=== PATIENT | female | born 1940 | race Caucasian/White ===

== ENCOUNTER 2016-07-12 16:22 | Inpatient (IN) | payer MEDICARE ==
[~2016-07-12] VITALS: Ht 165.1 cm; Wt 88.0 kg
[~2016-07-12 16:22] MED LIST: ACET325T9 PO; ALPR0.25 PO; ALPR0.254 PO; ALPR0.5T6 PO; ARIP15TA2 PO; ASPI325T4 PO; ASPI81TA2 PO; ATOR20TA PO; CALC-326 PO; CALC500T10 PO; CETI10TA22 PO; CINN500C PO; CLON1PAT9 TD; ESCI10TA PO; FURO40TA4 PO; HYDR-2666 PO; HYDR-971 PO; INSU100I27 SQ; INSU100V8 SQ; INSU500V SQ; ISOS30TA4 PO; LACT1CAP8 PO; LISI-334 PO; LOPE2CAP88 PO; LORA10TA33 PO; MAGN400T3 PO; METO1TAB6 PO; METR250T PO; MULT-246 PO; MULT1TAB52 PO; NYST60PO TP; OMEG100T PO; OMEG1CAP6 PO; POTA20LI PO; POTA20TA4 PO; RANI150T6 PO; SIME80TA14 PO; TRAZ50TA15 PO; VIT1TABL57 PO; VITA1CAP PO
[2016-07-12 17:12] LABS: BASO # 0.1 x10^3/uL (0.0-0.2); BASO % 1 % (0-3); EOS % 0 % (0-3); HEMATOCRIT 42.4 % (36.0-47.0); HEMOGLOBIN 14.3 g/dL (12.0-15.5); LYMPH # 0.4 x10^3/uL (1.0-4.8); LYMPH % 2 % (24-48); MEAN CORPUSCULAR HEMOGLOBIN 32 pg (25-35); MEAN CORPUSCULAR HGB CONC 34 g/dL (31-37); MEAN CORPUSCULAR VOLUME 96 fL (79-100); MONO % 5 % (0-9); NEUT % 93 % (31-73); PLATELET COUNT 179 x10^3/uL (140-400); RED BLOOD COUNT 4.42 x10^6/uL (3.50-5.40); RED CELL DISTRIBUTION WIDTH 14.4 % (11.5-14.5)
[2016-07-12 17:14] LABS: BILIRUBIN,URINE SMALL (NEG); GLUCOSE,URINE 500 mg/dL (NEG); NITRITE,URINE NEGATIVE (NEG); PH,URINE 5.5; UROBILINOGEN,URINE 0.2 mg/dL (0.2 mg/dL)
[2016-07-12 17:19] LABS: CALCIUM 8.8 mg/dL (8.5-10.1); CREATININE 1.5 mg/dL (0.6-1.0); GFR 33.8
[2016-07-12 17:25] LABS: ALBUMIN 3.2 g/dL (3.4-5.0); MAGNESIUM 1.7 mg/dL (1.8-2.4); TOTAL PROTEIN 6.3 g/dL (6.4-8.2)
[2016-07-12 17:31] LABS: BACTERIA,URINE FEW /HPF (0-FEW); PROTEIN,URINE NEGATIVE (NEG-TRACE); SQUAMOUS EPITHELIAL CELL,UR MOD /LPF; WBC,URINE OCC /HPF (0-4)
[2016-07-12] MEDS ORDERED: ACETAMINOPHEN 325 MG TABLET. PO PRN (18:00)
[2016-07-12] MEDS ORDERED: ONDANSETRON PF 4 MG/2 ML VIAL. IV PRN ×2 (18:00→18:36)
--- NOTE | 2016-07-12 18:11 | RAD ---
PROCEDURE CT scan of the head without contrast 07/12/2016 HISTORY Fall with altered mental status. TECHNIQUE Unenhanced contiguous, 5 millimeter axial sections were obtained through the head. One or more of the following individualized dose reduction techniques were utilized for this study: 1. Automated exposure control. 2. Adjustment of the mA and/or kV according to patient size. 3. Use of iterative reconstruction technique. FINDINGS Comparison study is dated 02/10/2016. There is generalized parenchymal atrophy. Areas of decreased attenuation are seen within the periventricular and subcortical white matter of both cerebral hemispheres consistent with areas of small vessel ischemic disease. No acute parenchymal abnormality is seen. No extra-axial fluid collection is noted. No skull fracture is seen. IMPRESSION No acute intracranial abnormality is seen. Electronically signed by: Raul Lynch MD (Jul 12, 2016 18:09:28)
--- NOTE | 2016-07-12 18:17 | PHYS DOC ---
Past Medical History Past Medical History: Anxiety, CAD, Depression, Diabetes-Type II, GERD, Glaucoma, High Cholesterol, Hypertension, PA, Renal Disease, Stroke, UTI, Other Additional Past Medical Histor: hemachromatosis, TVT, sleep apnea, mono Past Surgical History: Cholecystectomy, Other Additional Past Surgical Histo: cataract surgery, LASER EYE SURG, BILAT TOE/ FOOT SURG Alcohol Use: None Drug Use: None Adult General Chief Complaint Chief Complaint: MECHANICAL FALL HPI HPI Patient is a 76 year old female who presents with altered mental status. Patient was sent to the emergency department by custodial staff after patient was found to have suffered a fall in her room. The patient has history of dementia and is unable to provide any history. The patient was recently admitted to the hospital for treatment of urinary tract infection. Staff at the custodial are concerned that she may have another urinary tract infection at this time. Patient has not had any fevers. No reports of respiratory distress. The patient at this time denies any complaints. Review of Systems Review of Systems Caveat: Patient demented, denies any complaints Constitutional: Denies fever or chills [] Eyes: Denies change in visual acuity, redness, or eye pain [] HENT: Denies nasal congestion or sore throat [] Respiratory: Denies cough or shortness of breath [] Cardiovascular: No additional information not addressed in HPI [] GI: Denies abdominal pain, nausea, vomiting, bloody stools or diarrhea [] : Denies dysuria or hematuria [] Musculoskeletal: Denies back pain or joint pain [] Integument: Denies rash or skin lesions [] Neurologic: Denies headache, focal weakness or sensory changes [] Endocrine: Denies polyuria or polydipsia [] Current Medications Current Medications Current Medications Medications (Trade) Dose Ordered Sig/Kareem Start Time Stop Time Status Last Admin Dose Admin Acetaminophen (Tylenol) 650 mg PRN Q4HRS PRN 07/12/16 18:00 07/13/16 17:59 UNV Ondansetron HCl 4 mg 4 mg PRN Q8HRS PRN 07/12/16 18:00 07/13/16 17:59 UNV Sodium Chloride (Iv Sodium Chloride 0.9% 1000ml Bag) 1,000 ml @ 125 mls/hr Q8H 07/12/16 17:58 07/13/16 17:57 UNV Allergies Allergies Allergies Coded Allergies Type Severity Reaction Last Updated Verified Phenothiazines Allergy Severe DYSTONIC REACTION 06/19/15 Yes chlorpromazine Allergy Severe DYSTONIC REACTION 06/19/15 Yes droperidol Allergy Severe DYSTONIC REACTION 06/19/15 Yes haloperidol Allergy Severe DYSTONIC REACTION 06/19/15 Yes sertraline HCl Allergy Severe depression 06/19/15 Yes thioridazine Allergy Severe DYSTONIC REACTION 06/19/15 Yes trimethobenzamide Allergy Severe DYSTONIC REACTION 06/19/15 Yes escitalopram Allergy Intermediate 06/19/15 Yes metoclopramide HCl Allergy Intermediate "out of it" 06/19/15 Yes prochlorperazine edisylate Allergy Intermediate "pull skin off" 06/19/15 Yes prochlorperazine maleate Allergy Intermediate "pull skin off" 06/19/15 Yes promethazine Allergy Intermediate 06/19/15 Yes Physical Exam Physical Exam Constitutional: Lethargic, responsive voice, follows commands, afebrile. [] HENT: Normocephalic, atraumatic, bilateral external ears normal, oropharynx moist, no oral exudates, nose normal. [] Eyes: PERRLA, EOMI, conjunctiva normal, no discharge. [] Neck: Normal range of motion, no tenderness, supple, no stridor. [] Cardiovascular:Heart rate regular rhythm, no murmur [] Lungs & Thorax: Bilateral breath sounds clear to auscultation [] Abdomen: Bowel sounds normal, soft, no tenderness, no masses, no pulsatile masses. [] Skin: Warm, dry, no erythema, no rash. [] Back: No tenderness, no CVA tenderness. [] Extremities: No tenderness, no cyanosis, no clubbing, ROM intact, no edema. [] Neurologic: Alert, oriented to self only, symmetric 4 out of 5 strength in bilateral upper and lower extremities, normal sensation. [] Current Patient Data Vital Signs Vital Signs Date Time Temp Pulse Resp B/P Pulse Ox O2 Delivery O2 Flow Rate FiO2 07/12/16 17:00 92 14 134/89 95 Room Air 07/12/16 16:25 98.4 98.4 Lab Values Laboratory Tests Test 07/12/16 16:37 White Blood Count 21.0x10^3/uL (4.0-11.0) H Red Blood Count 4.42x10^6/uL (3.50-5.40) Hemoglobin 14.3g/dL (12.0-15.5) Hematocrit 42.4% (36.0-47.0) Mean Corpuscular Volume 96fL (79-100) Mean Corpuscular Hemoglobin 32pg (25-35) Mean Corpuscular Hemoglobin Concent 34g/dL (31-37) Red Cell Distribution Width 14.4% (11.5-14.5) Platelet Count 179x10^3/uL (140-400) Neutrophils (%) (Auto) 93% (31-73) H Lymphocytes (%) (Auto) 2% (24-48) L Monocytes (%) (Auto) 5% (0-9) Eosinophils (%) (Auto) 0% (0-3) Basophils (%) (Auto) 1% (0-3) Neutrophils # (Auto) 19.5x10^3uL (1.8-7.7) H Lymphocytes # (Auto) 0.4x10^3/uL (1.0-4.8) L Monocytes # (Auto) 1.0x10^3/uL (0.0-1.1) Eosinophils # (Auto) 0.0x10^3/uL (0.0-0.7) Basophils # (Auto) 0.1x10^3/uL (0.0-0.2) Platelet Estimate Pending Urine Collection Type Unknown Urine Color Malissa Urine Clarity Cloudy Urine pH 5.5 Urine Specific [place] >=1.030 Urine Protein Negativemg/dL (NEG-TRACE) Urine Glucose (UA) 500mg/dL (NEG) Urine Ketones (Stick) Negativemg/dL (NEG) Urine Blood Negative (NEG) Urine Nitrite Negative (NEG) Urine Bilirubin Small (NEG) Urine Urobilinogen Dipstick 0.2mg/dL (0.2 mg/dL) Urine Leukocyte Esterase Negative (NEG) Urine RBC 1-2/HPF (0-2) Urine WBC Occ/HPF (0-4) Urine Squamous Epithelial Cells Mod/LPF Urine Bacteria Few/HPF (0-FEW) Urine Hyaline Casts Moderate/HPF Urine Mucus Mod/LPF Sodium Level 137mmol/L (136-145) Potassium Level 4.0mmol/L (3.5-5.1) Chloride Level 100mmol/L (98-107) Carbon Dioxide Level 26mmol/L (21-32) Anion Gap 11 (6-14) Blood Urea Nitrogen 26mg/dL (7-20) H Creatinine 1.5mg/dL (0.6-1.0) H Estimated GFR (Cockcroft-Gault) 33.8 BUN/Creatinine Ratio 17 (6-20) Glucose Level 280mg/dL (70-99) H Calcium Level 8.8mg/dL (8.5-10.1) Magnesium Level 1.7mg/dL (1.8-2.4) L Total Bilirubin 1.0mg/dL (0.2-1.0) Aspartate Amino Transferase (AST) 16U/L (15-37) Alanine Aminotransferase (ALT) 30U/L (14-59) Alkaline Phosphatase 73U/L (46-116) Total Protein 6.3g/dL (6.4-8.2) L Albumin 3.2g/dL (3.4-5.0) L Albumin/Globulin Ratio 1.0 (1.0-1.7) Laboratory Tests 07/12/16 16:37 Laboratory Tests 07/12/16 16:37 EKG EKG Interpreted by me: Heart rate 87, sinus rhythm, leftward axis, normal intervals , no acute ST/T-wave abnormalities present [] Radiology/Procedures Radiology/Procedures One view AP chest x-ray interpreted by me: No infiltrate, no effusion, normal cardiac silhouette [facility] [address] [place], [place] [id number] IMAGING REPORT Signed PATIENT: JAXON OLMSTEAD ACCOUNT: [id number] : 1940 LOCATION: ER AGE: 76 SEX: F EXAM STATUS: REG ER ORD. PHYSICIAN: MARIANNE ALBERT MD REASON: altered mental status, fall PROCEDURE: HEAD WO CONTRAST PROCEDURE CT scan of the head without contrast 07/12/2016 HISTORY Fall with altered mental status. TECHNIQUE Unenhanced contiguous, 5 millimeter axial sections were obtained through the head. One or more of the following individualized dose reduction techniques were utilized for this study: 1. Automated exposure control. 2. Adjustment of the mA and/or kV according to patient size. 3. Use of iterative reconstruction technique. FINDINGS Comparison study is dated 02/10/2016. There is generalized parenchymal atrophy. Areas of decreased attenuation are seen within the periventricular and subcortical white matter of both cerebral hemispheres consistent with areas of small vessel ischemic disease. No acute parenchymal abnormality is seen. No extra-axial fluid collection is noted. No skull fracture is seen. IMPRESSION No acute intracranial abnormality is seen. Electronically signed by: Raul Lynch MD (Jul 12, 2016 18:09:28) DICTATED and SIGNED BY: RAUL LYNCH MD DATE: 07/12/16 1806 CC: MARIANNE ALBERT MD; TOYIN MARIE MD ~ [] Course & Med Decision Making Course & Med Decision Making Pertinent Labs and Imaging studies reviewed. (See chart for details) Patient's neuro imaging was negative for acute findings and patient's UA does not show signs of active infection. The patient's symptoms appear to be due to dehydration as the patient has no elevated BUN/creatinine and concentrated urine. Due to continued fall risk, the patient will need to be admitted to the hospital for IV hydration. I spoke with Dr. Parekh who accepted care patient in hospital. Dragon Disclaimer Dragon Disclaimer This electronic medical record was generated, in whole or in part, using a voice recognition dictation system. Departure Departure Impression: Primary Impression: Dehydration Additional Impressions: Encephalopathy acute Leukocytosis Type 2 diabetes mellitus Disposition: ADMITTED INPATIENT Admitting Physician: Elena Parekh Condition: STABLE Referrals: TOYIN MARIE MD (PCP) Problem Qualifiers Additional Impressions: Leukocytosis Leukocytosis type: unspecified Qualified Code: D72.829 - Elevated white blood cell count, unspecified Type 2 diabetes mellitus Diabetes mellitus complication status: with hyperglycemia Diabetes mellitus nursing home insulin use: unspecified nursing home insulin use status Qualified Code : E11.65 - Type 2 diabetes mellitus with hyperglycemia MARIANNE ALBERT MD Jul 12, 2016 18:17
--- NOTE | 2016-07-12 18:36 | PDOC1 ---
History and Physical Date of Admission Date of Admission DATE: 07/12/16 TIME: 18:29 Identification/Chief Complaint Chief Complaint fall in SNU, lethargy? Source Source: Chart review, Patient History of Present Illness History of Present Illness 76 y/o female, demented, SNU resident, poor historian no family at bedside, BUt familiar to me as i admitted her may 2016 for the ff: 1. AMS, unresponsiveness, metabolic encephalopathy from drug overdose 2. suicide with drug overdose, extubated 02/11 3. acute resp failure with 2 3. hypoglycemia with 2 4. dm2 5. HTN 6. glaucoma 7. recent right ankle fx, no sx 8. possible asp PNA 9. hypomagnesemia 10. dysphagia post intubation 11. old or subacute CVA on MRI But she also was just here Jun 2016 for UTI and the ff: She was just dcd 10 days ago 1. Altered mental status with baseline dementia, metabolic encephalopathy likely due to urinary tract infection. 2. Hypertension. 3. Hyperlipidemia. 4. Diabetes mellitus. 5. Polypharmacy. 6. Depression. 7. baseline moderate dementia. 8. Hx of hemochromatosis 9. asymptomatic bradycardia 10. hypomagnesemia NOw. she is back as per staff at SNU bec of fall, no visible injuries, dehydration, dec PO and lethargy WBC 17, all she can say is "yes to me". Oriented to self at baseline per report , but was able to tell me she is in the hospital. No UTI on UA CXR pending, CT head neg Past Medical History Cardiovascular: HTN, CT, Hyperlipidemia, Other Pulmonary: Pneumonia, Other CENTRAL NERVOUS SYSTEM: CVA Heme/Onc: Other Psych: Anxiety, Depression, Panic, Other Musculoskeletal: Osteoarthritis Infectious disease: No pertinent hx Renal/: Chronic renal insuff, UTI, Other Endocrine: Diabetes Past Surgical History Past Surgical History: Cholecystectomy, Cataract Removal, Hernia Repair, Other Family History Family History: Diabetes, Family History Unknown Social History Smoke: No ALCOHOL: none Drugs: None Current Problem List Problem List Problems Medical Problems: (1) Dehydration Status: Acute (2) Encephalopathy acute Status: Acute (3) Leukocytosis Status: Acute (4) Mental status change Status: Acute (5) Type 2 diabetes mellitus Status: Acute Problems: Current Medications Current Medications Current Medications Ondansetron HCl 4 mg 4 mg PRN Q8HRS PRN IV NAUSEA/VOMITING; Start 07/12/16 at 18:00; Stop 07/13/16 at 17:59 Sodium Chloride (Iv Sodium Chloride 0.9% 1000ml Bag) 1,000 ml @ 125 mls/hr Q8H IV ; Start 07/12/16 at 17:58; Stop 07/13/16 at 17:57 Acetaminophen (Tylenol) 650 mg PRN Q4HRS PRN PO FEVER; Start 07/12/16 at 18:00 ; Stop 07/13/16 at 17:59 Active Scripts Active Nystop (Nystatin) 60 Gm Powder 1 Shruthi TP BID Reported Zantac (Ranitidine Hcl) 150 Mg Tablet 1 Tab PO BID Tylenol (Acetaminophen) 325 Mg Tablet 650 Mg PO PRN Q6HRS Probiotic (Lactobacillus Combo No.11) 1 Each Cap.sprink 1 Each PO BID Potassium Chloride Oral Liquid (Potassium Chloride) 20 Meq/15 Ml Liquid 20 Meq PO DAILY Oyster Shell Calcium + D Tab (Calcium Carbonate/Vitamin D3) 1 Each Tablet 1 Each PO Nephro-Jerilyn Rx Tablet (Vit B Cmplx 3/Fa/Vit C/Biotin) 1 Each Tablet 1 Tab PO Multivitamins (Multivitamin) 1 Each Tablet 1 Tab PO DAILY Magnesium Oxide 400 Mg Tablet 1 Tab PO DAILY Levemir Flextouch (Insulin Detemir) 100 Unit/1 Ml Insuln.pen 10 Unit SQ BID Imodium A-D (Loperamide HCl) 2 Mg Capsule 2 Mg PO Simethicone 80 Mg Tab.chew 80 Mg PO PRN QID Fish Oil 1,000 Mg Capsule ([place]-3 Fatty Acids/Fish Oil) 1 Each Capsule 1 Each PO Escitalopram Oxalate 10 Mg Tablet 15 Mg PO DAILY Aspirin 325 Mg Tablet 1 Tab PO DAILY Alprazolam 0.25 Mg Tablet 0.5 Mg PO HS Abilify (Aripiprazole) 15 Mg Tablet 7.5 Mg PO DAILY Lipitor (Atorvastatin Calcium) 20 Mg Tablet 20 Mg PO DAILY Lisinopril 20 Mg Tablet 20 Mg PO DAILY Allergies Allergies: Coded Allergies: Phenothiazines (Verified Allergy, Severe, DYSTONIC REACTION, 06/19/15) chlorpromazine (Verified Allergy, Severe, DYSTONIC REACTION, 06/19/15) droperidol (Verified Allergy, Severe, DYSTONIC REACTION, 06/19/15) haloperidol (Verified Allergy, Severe, DYSTONIC REACTION, 06/19/15) sertraline HCl (Verified Allergy, Severe, depression, 06/19/15) thioridazine (Verified Allergy, Severe, DYSTONIC REACTION, 06/19/15) trimethobenzamide (Verified Allergy, Severe, DYSTONIC REACTION, 06/19/15) escitalopram (Verified Allergy, Intermediate, 06/19/15) metoclopramide HCl (Verified Allergy, Intermediate, "out of it", 06/19/15) prochlorperazine edisylate (Verified Allergy, Intermediate, "pull skin off ", 06/19/15) prochlorperazine maleate (Verified Allergy, Intermediate, "pull skin off" , 06/19/15) promethazine (Verified Allergy, Intermediate, 06/19/15) ROS Review of System cant be obtained dementia Physical Exam General: Oriented X3 (oriented to self and place), Cooperative Lungs: Normal air movement Heart: S1S2, no gallops, no murmurs Cardiovascular: S1, S2 Breasts: Normal, No suspicious masses, Rt breast nml w/o mass, Lt breast nml w/ o mass, Nipples normal Male Genitals Exam: normal genitalia PELVIC: Nml ext genitalia Extremities: No clubbing, No cyanosis, No edema, Normal pulses, No tenderness/ swelling Skin: No rashes, No breakdown, No significant lesion Neuro: Normal gait, Normal speech, Strength at 5/5 X4 ext, Normal tone, Sensation intact, Cranial nerves 3-12 NL, Reflexes 2+ Vitals Vitals Vital Signs Date Time Temp Pulse Resp B/P Pulse Ox O2 Delivery O2 Flow Rate FiO2 07/12/16 17:45 74 15 135/62 95 Room Air 07/12/16 16:25 98.4 98.4 Labs Labs Laboratory Tests Test 07/12/16 16:37 White Blood Count 21.0x10^3/uL (4.0-11.0) Red Blood Count 4.42x10^6/uL (3.50-5.40) Hemoglobin 14.3g/dL (12.0-15.5) Hematocrit 42.4% (36.0-47.0) Mean Corpuscular Volume 96fL (79-100) Mean Corpuscular Hemoglobin 32pg (25-35) Mean Corpuscular Hemoglobin Concent 34g/dL (31-37) Red Cell Distribution Width 14.4% (11.5-14.5) Platelet Count 179x10^3/uL (140-400) Neutrophils (%) (Auto) 93% (31-73) Lymphocytes (%) (Auto) 2% (24-48) Monocytes (%) (Auto) 5% (0-9) Eosinophils (%) (Auto) 0% (0-3) Basophils (%) (Auto) 1% (0-3) Neutrophils # (Auto) 19.5x10^3uL (1.8-7.7) Lymphocytes # (Auto) 0.4x10^3/uL (1.0-4.8) Monocytes # (Auto) 1.0x10^3/uL (0.0-1.1) Eosinophils # (Auto) 0.0x10^3/uL (0.0-0.7) Basophils # (Auto) 0.1x10^3/uL (0.0-0.2) Urine Collection Type Unknown Urine Color Malissa Urine Clarity Cloudy Urine pH 5.5 Urine Specific [place] >=1.030 Urine Protein Negativemg/dL (NEG-TRACE) Urine Glucose (UA) 500mg/dL (NEG) Urine Ketones (Stick) Negativemg/dL (NEG) Urine Blood Negative (NEG) Urine Nitrite Negative (NEG) Urine Bilirubin Small (NEG) Urine Urobilinogen Dipstick 0.2mg/dL (0.2 mg/dL) Urine Leukocyte Esterase Negative (NEG) Urine RBC 1-2/HPF (0-2) Urine WBC Occ/HPF (0-4) Urine Squamous Epithelial Cells Mod/LPF Urine Bacteria Few/HPF (0-FEW) Urine Hyaline Casts Moderate/HPF Urine Mucus Mod/LPF Sodium Level 137mmol/L (136-145) Potassium Level 4.0mmol/L (3.5-5.1) Chloride Level 100mmol/L (98-107) Carbon Dioxide Level 26mmol/L (21-32) Anion Gap 11 (6-14) Blood Urea Nitrogen 26mg/dL (7-20) Creatinine 1.5mg/dL (0.6-1.0) Estimated GFR (Cockcroft-Gault) 33.8 BUN/Creatinine Ratio 17 (6-20) Glucose Level 280mg/dL (70-99) Calcium Level 8.8mg/dL (8.5-10.1) Magnesium Level 1.7mg/dL (1.8-2.4) Total Bilirubin 1.0mg/dL (0.2-1.0) Aspartate Amino Transf (AST/SGOT) 16U/L (15-37) Alanine Aminotransferase (ALT/SGPT) 30U/L (14-59) Alkaline Phosphatase 73U/L (46-116) Total Protein 6.3g/dL (6.4-8.2) Albumin 3.2g/dL (3.4-5.0) Albumin/Globulin Ratio 1.0 (1.0-1.7) Laboratory Tests Test 07/12/16 16:37 White Blood Count 21.0x10^3/uL (4.0-11.0) Red Blood Count 4.42x10^6/uL (3.50-5.40) Hemoglobin 14.3g/dL (12.0-15.5) Hematocrit 42.4% (36.0-47.0) Mean Corpuscular Volume 96fL (79-100) Mean Corpuscular Hemoglobin 32pg (25-35) Mean Corpuscular Hemoglobin Concent 34g/dL (31-37) Red Cell Distribution Width 14.4% (11.5-14.5) Platelet Count 179x10^3/uL (140-400) Neutrophils (%) (Auto) 93% (31-73) Lymphocytes (%) (Auto) 2% (24-48) Monocytes (%) (Auto) 5% (0-9) Eosinophils (%) (Auto) 0% (0-3) Basophils (%) (Auto) 1% (0-3) Neutrophils # (Auto) 19.5x10^3uL (1.8-7.7) Lymphocytes # (Auto) 0.4x10^3/uL (1.0-4.8) Monocytes # (Auto) 1.0x10^3/uL (0.0-1.1) Eosinophils # (Auto) 0.0x10^3/uL (0.0-0.7) Basophils # (Auto) 0.1x10^3/uL (0.0-0.2) Urine Collection Type Unknown Urine Color Malissa Urine Clarity Cloudy Urine pH 5.5 Urine Specific [place] >=1.030 Urine Protein Negativemg/dL (NEG-TRACE) Urine Glucose (UA) 500mg/dL (NEG) Urine Ketones (Stick) Negativemg/dL (NEG) Urine Blood Negative (NEG) Urine Nitrite Negative (NEG) Urine Bilirubin Small (NEG) Urine Urobilinogen Dipstick 0.2mg/dL (0.2 mg/dL) Urine Leukocyte Esterase Negative (NEG) Urine RBC 1-2/HPF (0-2) Urine WBC Occ/HPF (0-4) Urine Squamous Epithelial Cells Mod/LPF Urine Bacteria Few/HPF (0-FEW) Urine Hyaline Casts Moderate/HPF Urine Mucus Mod/LPF Sodium Level 137mmol/L (136-145) Potassium Level 4.0mmol/L (3.5-5.1) Chloride Level 100mmol/L (98-107) Carbon Dioxide Level 26mmol/L (21-32) Anion Gap 11 (6-14) Blood Urea Nitrogen 26mg/dL (7-20) Creatinine 1.5mg/dL (0.6-1.0) Estimated GFR (Cockcroft-Gault) 33.8 BUN/Creatinine Ratio 17 (6-20) Glucose Level 280mg/dL (70-99) Calcium Level 8.8mg/dL (8.5-10.1) Magnesium Level 1.7mg/dL (1.8-2.4) Total Bilirubin 1.0mg/dL (0.2-1.0) Aspartate Amino Transf (AST/SGOT) 16U/L (15-37) Alanine Aminotransferase (ALT/SGPT) 30U/L (14-59) Alkaline Phosphatase 73U/L (46-116) Total Protein 6.3g/dL (6.4-8.2) Albumin 3.2g/dL (3.4-5.0) Albumin/Globulin Ratio 1.0 (1.0-1.7) VTE Prophylaxis Ordered VTE Prophylaxis Devices: Yes VTE Pharmacological Prophylaxi: Yes Assessment/Plan Assessment/Plan 1. Lethargy, frailty 2. Recent UTI\\ 3. Dementia with hx suicide attempts in deb past 4. 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 ARF sec to poor pO 6. LEukocytosis 7. Hypertension, Hyperlipidemia.4. Diabetes mellitus. - chronic stable 8. Polypharmacy. 9. Depression. 10. Hx of hemochromatosis 11 hx bradycardia PLAN IVF for ARF and to augment pO intake Needs nutritional supplementation - nutrition consult pt/ot DVT prophy DNR Resume home meds PRognosis poor given freq of admissionS recheck CBC pamella can check lactate ff up CXR taken at ER Seen at ER SHAINA KWAN MD Jul 12, 2016 18:36
[2016-07-12] MEDS ORDERED: ACETAMINOPHEN 325 MG TABLET. PO SCH (18:45)
[2016-07-12] MEDS ORDERED: SIMETHICONE 80 MG TAB.CHEW PO PRN (18:45)
[2016-07-12] MEDS ORDERED: LOPERAMIDE 2 MG CAPSULE PO PRN (18:45)
--- NOTE | 2016-07-12 18:58 | EKG ---
[facility] [address] [place] [address] Test Date: 2016-07-12 Test Time: 16:32:28 Pat Name: JAXON OLMSTEAD Department: Room: ED HOLD 1 Gender: F Cosmetic Sales Assistant: : 1940 Requested By: MARIANNE ALBERT Order Number: [id number] Reading MD: Franklin Patton Measurements Intervals [place] Rate: 87 P: 6 IA: 136 QRS: -42 QRSD: 96 T: 27 QT: 376 QTc: 453 Interpretive Statements SINUS RHYTHM ABNORMAL LEFT AXIS DEVIATION CONSIDER INFERIOR MYOCARDIAL DAMAGE NON-SPECIFIC ST/T CHANGES Electronically Signed On 07-15-2016 10:22:46 COATER HELPER by Franklin Patton
--- NOTE | 2016-07-12 20:07 | ACF ---
Admission Forms Criteria MENTAL STATUS CHANGE Clinical Indications for Inpatient Care (Place 'X' for any and all applicable criteria): Ongoing inpatient care may be needed for ANY ONE of the following(1)(2)(3)(5)(6) : [X ]I. Suspected serious etiology (eg, medical disorder, CUSTOMER ACQUISITION SPECIALIST event) of mental status change [ ]II. Danger to self or others not manageable at lower level of care [ ]III. Grave disability (eg, inability to perform self care necessary at lower level of care) [ ]IV. Agitation or inappropriate behavior interfering with care for primary condition (eg, attempting to discontinue lines or drains prematurely, unable to cooperate with respiratory care) [ ]V. Delirium [A] [D][E] as described by ANY ONE of the following(26): [ ]a) Delirium due to alcohol or sedative [F] withdrawal [ ]b) Delirium of uncertain etiology that has not responded to appropriate empiric treatment [ ]c) Delirium that prevents performance of a life-sustaining function (eg, feeding or hydrating oneself) [ ]. General contraindications and/or Inappropriate clinical situations for Observational Care in patients with Mental Status Change, when ANY ONE of the following is required: [ ]a) Prediction of prolongation of LOS based on ANY ONE of the following may be considered as a contraindication for observational care 2, 3, 4, 5, 6, 7, 8, 9, 10, 11 [ ]i) Age > 65 yrs. [ ]ii) Patient arriving by ambulance [ ]iii) Patient with high acuity [ ]iv) Patient requiring vital sign monitoring [ ]v) Patient on IV medication [ ]b) Systolic blood pressures 180mmHg 3,12 [ ]c) Patient with altered mental status including delirium and other alteration of consciousness, (3) [ ]d) Patient whose discharge disposition will be to a [facility]ci home or rehabilitation home should not be managed in Emergency Department Observation Unit. CMS rule requires 3 days hospital stay before such placement.3,13 [ ]e) Patient with failure to thrive due to broad array of etiologies 3,16,17 [ ]f) Inability to ambulate 3,14 Extended stay beyond goal length of stay for the primary condition may be needed until ALL of the following are present(3)(5): [ ]a) Underlying medical etiology of mental status change is absent, or has been established and adequately treated [ ]b) Danger to self or others is absent or manageable at lower level of care. [ ]c) Behavior crisis management, including physical or chemical restraints, is not required or available at lower level of car [ ]d) Substance or alcohol withdrawal is absent or manageable at lower level of care. [ ]e) Behavioral symptoms (eg, agitation, somnolence, inappropriate behavior) are absent, or are manageable at lower level of care. The [email or web address] content created by [email or web address] has been revised. The portions of the content which have been revised are identified through the use of italic text or in bold, and [facility] has neither reviewed nor approved the modified material. All other unmodified content is copyright [email or web address]. Please see references footnoted in the original [facility] edition 2016 Admission Criteria Met?: Yes DAVID PETERSON Jul 12, 2016 20:07
[2016-07-12 20:27] LABS: PLT ESTIMATE ADEQUATE (ADEQUATE)
[2016-07-12 20:40] VITALS: BP 144/66
[2016-07-12] MEDS: ALPRAZOLAM 0.25 MG TABLET PO SCH (21:00)
[2016-07-12] MEDS: INSULIN DETEMIR 300 UNITS/3 ML INSULN.PEN. SQ SCH (21:00)
[2016-07-12] MEDS: LACTOBACILLUS ACIDOPH & BULGAR 1 TABLET. PO SCH (21:00)
[2016-07-12] MEDS: FAMOTIDINE 20 MG TABLET. PO SCH (21:00)
[2016-07-12 23:00] VITALS: BP 111/60
[2016-07-12] MEDS: IV NORMAL SALINE 1000ML BAG 1,000 ML IV SCH (23:32)
[2016-07-12] MEDS: NYSTATIN TOPICAL POWDER 15GM BOTTLE. TP SCH (23:33)
[2016-07-12] MEDS: HEPARIN PF for SUB-Q USE 5,000 UNIT/0.5 ML VIAL. SQ SCH (23:38)
[2016-07-13] VITALS (7 sets, daily range): BP systolic 112–158; BP diastolic 60–84
[2016-07-13 06:19] LABS: BASO % 0 % (0-3); EOS % 1 % (0-3); HEMATOCRIT 39.2 % (36.0-47.0); LYMPH # 1.2 x10^3/uL (1.0-4.8); LYMPH % 10 % (24-48); MEAN CORPUSCULAR HEMOGLOBIN 33 pg (25-35); MEAN CORPUSCULAR HGB CONC 33 g/dL (31-37); MEAN CORPUSCULAR VOLUME 98 fL (79-100); MONO % 10 % (0-9); NEUT % 78 % (31-73); PLATELET COUNT 136 x10^3/uL (140-400); RED CELL DISTRIBUTION WIDTH 14.8 % (11.5-14.5); WHITE BLOOD COUNT 11.7 x10^3/uL (4.0-11.0)
[2016-07-13 06:50] LABS: CALCIUM 8.4 mg/dL (8.5-10.1); CREATININE 1.2 mg/dL (0.6-1.0); GFR 43.7; POTASSIUM 3.1 mmol/L (3.5-5.1)
[2016-07-13] MEDS: HEPARIN PF for SUB-Q USE 5,000 UNIT/0.5 ML VIAL. SQ SCH ×3 (07:48→21:28)
[2016-07-13] MEDS: IV NORMAL SALINE 1000ML BAG 1,000 ML IV SCH ×2 (07:52→09:54)
--- NOTE | 2016-07-13 08:31 | RAD ---
EXAM: Chest, single view. HISTORY: Altered mental status. COMPARISON: 06/30/2016. FINDINGS: A frontal view of the chest is obtained. There is no infiltrate, effusion or pneumothorax. The heart is normal in size. IMPRESSION: No acute pulmonary finding.
--- NOTE | 2016-07-13 08:52 | PDOC ---
PROGRESS NOTES Chief Complaint Chief Complaint A/P Falls, Physical debility Dementia GARTH Leukocytosis Hypertension, Hyperlipidemia. Diabetes mellitus ?Depression. Hx of hemochromatosis hx bradycardia Plan replace potassium Per RN, pt is at baseline state, RN spoke with son Physical therapy IV hydration monitor WBC, improving , no obvious signs of infection, UA, CXR normal fall precautions History of Present Illness History of Present Illness no fever no chills sitting in chair d/w RN Vitals Vitals Vital Signs Date Time Temp Pulse Resp B/P Pulse Ox O2 Delivery O2 Flow Rate FiO2 07/13/16 08:05 98.1 67 18 143/67 96 Room Air 98.1 Physical Exam General: Alert, Oriented X3 (oriented to self and place), Cooperative Heart: Normal S1, Normal S2 Lungs: Clear Extremities: No clubbing, No cyanosis, No edema, Normal pulses, No tenderness/ swelling Skin: No rashes, No breakdown, No significant lesion Labs LABS Laboratory Tests Test 07/12/16 16:37 07/13/16 02:30 07/13/16 07:40 White Blood Count 21.0x10^3/uL (4.0-11.0) 11.7x10^3/uL (4.0-11.0) Red Blood Count 4.42x10^6/uL (3.50-5.40) 4.00x10^6/uL (3.50-5.40) Hemoglobin 14.3g/dL (12.0-15.5) 13.0g/dL (12.0-15.5) Hematocrit 42.4% (36.0-47.0) 39.2% (36.0-47.0) Mean Corpuscular Volume 96fL (79-100) 98fL (79-100) Mean Corpuscular Hemoglobin 32pg (25-35) 33pg (25-35) Mean Corpuscular Hemoglobin Concent 34g/dL (31-37) 33g/dL (31-37) Red Cell Distribution Width 14.4% (11.5-14.5) 14.8% (11.5-14.5) Platelet Count 179x10^3/uL (140-400) 136x10^3/uL (140-400) Neutrophils (%) (Auto) 93% (31-73) 78% (31-73) Lymphocytes (%) (Auto) 2% (24-48) 10% (24-48) Monocytes (%) (Auto) 5% (0-9) 10% (0-9) Eosinophils (%) (Auto) 0% (0-3) 1% (0-3) Basophils (%) (Auto) 1% (0-3) 0% (0-3) Neutrophils # (Auto) 19.5x10^3uL (1.8-7.7) 9.2x10^3uL (1.8-7.7) Lymphocytes # (Auto) 0.4x10^3/uL (1.0-4.8) 1.2x10^3/uL (1.0-4.8) Monocytes # (Auto) 1.0x10^3/uL (0.0-1.1) 1.2x10^3/uL (0.0-1.1) Eosinophils # (Auto) 0.0x10^3/uL (0.0-0.7) 0.1x10^3/uL (0.0-0.7) Basophils # (Auto) 0.1x10^3/uL (0.0-0.2) 0.0x10^3/uL (0.0-0.2) Segmented Neutrophils % 65% (35-66) Band Neutrophils % 25% (0-9) Lymphocytes % 5% (24-48) Monocytes % 5% (0-10) Platelet Estimate Adequate (ADEQUATE) Urine Collection Type Unknown Urine Color Malissa Urine Clarity Cloudy Urine pH 5.5 Urine Specific [place] >=1.030 Urine Protein Negativemg/dL (NEG-TRACE) Urine Glucose (UA) 500mg/dL (NEG) Urine Ketones (Stick) Negativemg/dL (NEG) Urine Blood Negative (NEG) Urine Nitrite Negative (NEG) Urine Bilirubin Small (NEG) Urine Urobilinogen Dipstick 0.2mg/dL (0.2 mg/dL) Urine Leukocyte Esterase Negative (NEG) Urine RBC 1-2/HPF (0-2) Urine WBC Occ/HPF (0-4) Urine Squamous Epithelial Cells Mod/LPF Urine Bacteria Few/HPF (0-FEW) Urine Hyaline Casts Moderate/HPF Urine Mucus Mod/LPF Sodium Level 137mmol/L (136-145) 143mmol/L (136-145) Potassium Level 4.0mmol/L (3.5-5.1) 3.1mmol/L (3.5-5.1) Chloride Level 100mmol/L (98-107) 106mmol/L (98-107) Carbon Dioxide Level 26mmol/L (21-32) 26mmol/L (21-32) Anion Gap 11 (6-14) 11 (6-14) Blood Urea Nitrogen 26mg/dL (7-20) 25mg/dL (7-20) Creatinine 1.5mg/dL (0.6-1.0) 1.2mg/dL (0.6-1.0) Estimated GFR (Cockcroft-Gault) 33.8 43.7 BUN/Creatinine Ratio 17 (6-20) Glucose Level 280mg/dL (70-99) 90mg/dL (70-99) Lactic Acid Level 1.9mmol/L (0.4-2.0) Calcium Level 8.8mg/dL (8.5-10.1) 8.4mg/dL (8.5-10.1) Magnesium Level 1.7mg/dL (1.8-2.4) Total Bilirubin 1.0mg/dL (0.2-1.0) Aspartate Amino Transf (AST/SGOT) 16U/L (15-37) Alanine Aminotransferase (ALT/SGPT) 30U/L (14-59) Alkaline Phosphatase 73U/L (46-116) Total Protein 6.3g/dL (6.4-8.2) Albumin 3.2g/dL (3.4-5.0) Albumin/Globulin Ratio 1.0 (1.0-1.7) Glucose (Fingerstick) 92mg/dL (70-99) Assessment and Plan Assessmemt and Plan Problems Medical Problems: (1) Dehydration Status: Acute (2) Encephalopathy acute Status: Acute (3) Leukocytosis Status: Acute (4) Mental status change Status: Acute (5) Type 2 diabetes mellitus Status: Acute Problems: Comment Review of Relevant I have reviewed the following items michael (where applicable) has been applied. Labs Laboratory Tests Test 07/12/16 16:37 07/13/16 02:30 07/13/16 07:40 White Blood Count 21.0x10^3/uL (4.0-11.0) 11.7x10^3/uL (4.0-11.0) Red Blood Count 4.42x10^6/uL (3.50-5.40) 4.00x10^6/uL (3.50-5.40) Hemoglobin 14.3g/dL (12.0-15.5) 13.0g/dL (12.0-15.5) Hematocrit 42.4% (36.0-47.0) 39.2% (36.0-47.0) Mean Corpuscular Volume 96fL (79-100) 98fL (79-100) Mean Corpuscular Hemoglobin 32pg (25-35) 33pg (25-35) Mean Corpuscular Hemoglobin Concent 34g/dL (31-37) 33g/dL (31-37) Red Cell Distribution Width 14.4% (11.5-14.5) 14.8% (11.5-14.5) Platelet Count 179x10^3/uL (140-400) 136x10^3/uL (140-400) Neutrophils (%) (Auto) 93% (31-73) 78% (31-73) Lymphocytes (%) (Auto) 2% (24-48) 10% (24-48) Monocytes (%) (Auto) 5% (0-9) 10% (0-9) Eosinophils (%) (Auto) 0% (0-3) 1% (0-3) Basophils (%) (Auto) 1% (0-3) 0% (0-3) Neutrophils # (Auto) 19.5x10^3uL (1.8-7.7) 9.2x10^3uL (1.8-7.7) Lymphocytes # (Auto) 0.4x10^3/uL (1.0-4.8) 1.2x10^3/uL (1.0-4.8) Monocytes # (Auto) 1.0x10^3/uL (0.0-1.1) 1.2x10^3/uL (0.0-1.1) Eosinophils # (Auto) 0.0x10^3/uL (0.0-0.7) 0.1x10^3/uL (0.0-0.7) Basophils # (Auto) 0.1x10^3/uL (0.0-0.2) 0.0x10^3/uL (0.0-0.2) Segmented Neutrophils % 65% (35-66) Band Neutrophils % 25% (0-9) Lymphocytes % 5% (24-48) Monocytes % 5% (0-10) Platelet Estimate Adequate (ADEQUATE) Urine Collection Type Unknown Urine Color Malissa Urine Clarity Cloudy Urine pH 5.5 Urine Specific [place] >=1.030 Urine Protein Negativemg/dL (NEG-TRACE) Urine Glucose (UA) 500mg/dL (NEG) Urine Ketones (Stick) Negativemg/dL (NEG) Urine Blood Negative (NEG) Urine Nitrite Negative (NEG) Urine Bilirubin Small (NEG) Urine Urobilinogen Dipstick 0.2mg/dL (0.2 mg/dL) Urine Leukocyte Esterase Negative (NEG) Urine RBC 1-2/HPF (0-2) Urine WBC Occ/HPF (0-4) Urine Squamous Epithelial Cells Mod/LPF Urine Bacteria Few/HPF (0-FEW) Urine Hyaline Casts Moderate/HPF Urine Mucus Mod/LPF Sodium Level 137mmol/L (136-145) 143mmol/L (136-145) Potassium Level 4.0mmol/L (3.5-5.1) 3.1mmol/L (3.5-5.1) Chloride Level 100mmol/L (98-107) 106mmol/L (98-107) Carbon Dioxide Level 26mmol/L (21-32) 26mmol/L (21-32) Anion Gap 11 (6-14) 11 (6-14) Blood Urea Nitrogen 26mg/dL (7-20) 25mg/dL (7-20) Creatinine 1.5mg/dL (0.6-1.0) 1.2mg/dL (0.6-1.0) Estimated GFR (Cockcroft-Gault) 33.8 43.7 BUN/Creatinine Ratio 17 (6-20) Glucose Level 280mg/dL (70-99) 90mg/dL (70-99) Lactic Acid Level 1.9mmol/L (0.4-2.0) Calcium Level 8.8mg/dL (8.5-10.1) 8.4mg/dL (8.5-10.1) Magnesium Level 1.7mg/dL (1.8-2.4) Total Bilirubin 1.0mg/dL (0.2-1.0) Aspartate Amino Transf (AST/SGOT) 16U/L (15-37) Alanine Aminotransferase (ALT/SGPT) 30U/L (14-59) Alkaline Phosphatase 73U/L (46-116) Total Protein 6.3g/dL (6.4-8.2) Albumin 3.2g/dL (3.4-5.0) Albumin/Globulin Ratio 1.0 (1.0-1.7) Glucose (Fingerstick) 92mg/dL (70-99) Laboratory Tests Test 07/12/16 16:37 07/13/16 02:30 07/13/16 07:40 White Blood Count 21.0x10^3/uL (4.0-11.0) 11.7x10^3/uL (4.0-11.0) Red Blood Count 4.42x10^6/uL (3.50-5.40) 4.00x10^6/uL (3.50-5.40) Hemoglobin 14.3g/dL (12.0-15.5) 13.0g/dL (12.0-15.5) Hematocrit 42.4% (36.0-47.0) 39.2% (36.0-47.0) Mean Corpuscular Volume 96fL (79-100) 98fL (79-100) Mean Corpuscular Hemoglobin 32pg (25-35) 33pg (25-35) Mean Corpuscular Hemoglobin Concent 34g/dL (31-37) 33g/dL (31-37) Red Cell Distribution Width 14.4% (11.5-14.5) 14.8% (11.5-14.5) Platelet Count 179x10^3/uL (140-400) 136x10^3/uL (140-400) Neutrophils (%) (Auto) 93% (31-73) 78% (31-73) Lymphocytes (%) (Auto) 2% (24-48) 10% (24-48) Monocytes (%) (Auto) 5% (0-9) 10% (0-9) Eosinophils (%) (Auto) 0% (0-3) 1% (0-3) Basophils (%) (Auto) 1% (0-3) 0% (0-3) Neutrophils # (Auto) 19.5x10^3uL (1.8-7.7) 9.2x10^3uL (1.8-7.7) Lymphocytes # (Auto) 0.4x10^3/uL (1.0-4.8) 1.2x10^3/uL (1.0-4.8) Monocytes # (Auto) 1.0x10^3/uL (0.0-1.1) 1.2x10^3/uL (0.0-1.1) Eosinophils # (Auto) 0.0x10^3/uL (0.0-0.7) 0.1x10^3/uL (0.0-0.7) Basophils # (Auto) 0.1x10^3/uL (0.0-0.2) 0.0x10^3/uL (0.0-0.2) Segmented Neutrophils % 65% (35-66) Band Neutrophils % 25% (0-9) Lymphocytes % 5% (24-48) Monocytes % 5% (0-10) Platelet Estimate Adequate (ADEQUATE) Urine Collection Type Unknown Urine Color Malissa Urine Clarity Cloudy Urine pH 5.5 Urine Specific [place] >=1.030 Urine Protein Negativemg/dL (NEG-TRACE) Urine Glucose (UA) 500mg/dL (NEG) Urine Ketones (Stick) Negativemg/dL (NEG) Urine Blood Negative (NEG) Urine Nitrite Negative (NEG) Urine Bilirubin Small (NEG) Urine Urobilinogen Dipstick 0.2mg/dL (0.2 mg/dL) Urine Leukocyte Esterase Negative (NEG) Urine RBC 1-2/HPF (0-2) Urine WBC Occ/HPF (0-4) Urine Squamous Epithelial Cells Mod/LPF Urine Bacteria Few/HPF (0-FEW) Urine Hyaline Casts Moderate/HPF Urine Mucus Mod/LPF Sodium Level 137mmol/L (136-145) 143mmol/L (136-145) Potassium Level 4.0mmol/L (3.5-5.1) 3.1mmol/L (3.5-5.1) Chloride Level 100mmol/L (98-107) 106mmol/L (98-107) Carbon Dioxide Level 26mmol/L (21-32) 26mmol/L (21-32) Anion Gap 11 (6-14) 11 (6-14) Blood Urea Nitrogen 26mg/dL (7-20) 25mg/dL (7-20) Creatinine 1.5mg/dL (0.6-1.0) 1.2mg/dL (0.6-1.0) Estimated GFR (Cockcroft-Gault) 33.8 43.7 BUN/Creatinine Ratio 17 (6-20) Glucose Level 280mg/dL (70-99) 90mg/dL (70-99) Lactic Acid Level 1.9mmol/L (0.4-2.0) Calcium Level 8.8mg/dL (8.5-10.1) 8.4mg/dL (8.5-10.1) Magnesium Level 1.7mg/dL (1.8-2.4) Total Bilirubin 1.0mg/dL (0.2-1.0) Aspartate Amino Transf (AST/SGOT) 16U/L (15-37) Alanine Aminotransferase (ALT/SGPT) 30U/L (14-59) Alkaline Phosphatase 73U/L (46-116) Total Protein 6.3g/dL (6.4-8.2) Albumin 3.2g/dL (3.4-5.0) Albumin/Globulin Ratio 1.0 (1.0-1.7) Glucose (Fingerstick) 92mg/dL (70-99) Medications Current Medications Ondansetron HCl 4 mg 4 mg PRN Q8HRS PRN IV NAUSEA/VOMITING; Start 07/12/16 at 18:00; Stop 07/12/16 at 18:39; Status DC Sodium Chloride (Iv Sodium Chloride 0.9% 1000ml Bag) 1,000 ml @ 125 mls/hr Q8H IV Last administered on 07/13/16t 07:52; Start 07/12/16 at 17:58; Stop at 17:57 Acetaminophen (Tylenol) 650 mg PRN Q4HRS PRN PO FEVER; Start 07/12/16 at 18:00 ; Stop 07/12/16 at 19:03; Status DC Ondansetron HCl (Zofran) 4 mg PRN Q6HRS PRN IV NAUSEA/VOMITING; Start 07/12/16 at 18:36 Heparin Sodium (Porcine) 5,000 unit Q8HRS SQ Last administered on 07/13/16t 07: 48; Start 07/12/16 at 21:00 Acetaminophen (Tylenol) 650 mg PRN Q6HRS PO ; Start 07/12/16 at 18:45 Alprazolam (Xanax) 0.5 mg HS PO ; Start 07/12/16 at 21:00 Aspirin (Samira Aspirin) 325 mg DAILY PO ; Start 07/13/16 at 09:00 Atorvastatin Calcium (Lipitor) 20 mg QHS PO ; Start 07/13/16 at 09:00 Calcium/Vitamin D (Oscal D 500mg/ 200uts) 1 tab DAILY PO ; Start 07/13/16 at 09: 00 Escitalopram Oxalate (Lexapro) 15 mg DAILY PO ; Start 07/13/16 at 09:00; Stop at 09:00; Status DC Insulin Detemir (Levemir) 10 units BID SQ ; Start 07/12/16 at 21:00 Lisinopril (Prinivil) 20 mg DAILY PO ; Start 07/13/16 at 09:00 Loperamide HCl (Imodium) 2 mg PRN TID PRN PO DIARRHEA; Start 07/12/16 at 18:45 Magnesium Oxide (Magnesium Oxide) 400 mg DAILY PO ; Start 07/13/16 at 09:00 Nystatin (Nystop) 1 shruthi BID TP Last administered on 07/12/16t 23:33; Start at 21:00 Fish Oil (Fish Oil) 1,000 mg DAILY PO ; Start 07/13/16 at 09:00 Potassium Chloride (KCl Oral Soln) 20 meq DAILY PO ; Start 07/13/16 at 09:00 Simethicone (Gas-X) 80 mg PRN QID PRN PO GAS; Start 07/12/16 at 18:45 Aripiprazole (Abilify) 7.5 mg DAILY PO ; Start 07/13/16 at 09:00 Lactobacillus Acidophilus (Bacid, Azul-Bid) 1 tab BID PO ; Start 07/12/16 at 21: 00 Multivitamins/ Calcium (Thera M Plus) 1 tab DAILY PO ; Start 07/13/16 at 09:00 Famotidine (Pepcid) 20 mg BID PO ; Start 07/12/16 at 21:00 Escitalopram Oxalate (Lexapro) 15 mg DAILY PO ; Start 07/13/16 at 09:00 Active Scripts Active Nystop (Nystatin) 60 Gm Powder 1 Shruthi TP BID Reported Zantac (Ranitidine Hcl) 150 Mg Tablet 1 Tab PO BID Tylenol (Acetaminophen) 325 Mg Tablet 650 Mg PO PRN Q6HRS Probiotic (Lactobacillus Combo No.11) 1 Each Cap.sprink 1 Each PO BID Potassium Chloride Oral Liquid (Potassium Chloride) 20 Meq/15 Ml Liquid 20 Meq PO DAILY Oyster Shell Calcium + D Tab (Calcium Carbonate/Vitamin D3) 1 Each Tablet 1 Each PO Nephro-Jerilyn Rx Tablet (Vit B Cmplx 3/Fa/Vit C/Biotin) 1 Each Tablet 1 Tab PO Multivitamins (Multivitamin) 1 Each Tablet 1 Tab PO DAILY Magnesium Oxide 400 Mg Tablet 1 Tab PO DAILY Levemir Flextouch (Insulin Detemir) 100 Unit/1 Ml Insuln.pen 10 Unit SQ BID Imodium A-D (Loperamide HCl) 2 Mg Capsule 2 Mg PO Simethicone 80 Mg Tab.chew 80 Mg PO PRN QID Fish Oil 1,000 Mg Capsule ([place]-3 Fatty Acids/Fish Oil) 1 Each Capsule 1 Each PO Escitalopram Oxalate 10 Mg Tablet 15 Mg PO DAILY Aspirin 325 Mg Tablet 1 Tab PO DAILY Alprazolam 0.25 Mg Tablet 0.5 Mg PO HS Abilify (Aripiprazole) 15 Mg Tablet 7.5 Mg PO DAILY Lipitor (Atorvastatin Calcium) 20 Mg Tablet 20 Mg PO DAILY Lisinopril 20 Mg Tablet 20 Mg PO DAILY Vitals/I & O Vital Sign - Last 24 Hours 07/12/16 07/12/16 07/12/16 07/12/16 16:25 17:00 17:45 18:32 Temp 98.4 98.4 Pulse 84 92 74 86 Resp 16 14 15 20 B/P 126/60 134/89 135/62 125/87 Pulse Ox 94 95 95 98 O2 Delivery Room Air Room Air Room Air Room Air 07/12/16 07/12/16 07/12/16 07/13/16 20:00 20:40 23:00 03:13 Temp 95.6 97.7 98.8 95.6 97.7 98.8 Pulse 93 80 95 79 Resp 18 20 20 18 B/P 136/63 144/66 111/60 121/62 Pulse Ox 94 99 96 95 O2 Delivery Room Air Room Air Room Air Room Air 07/13/16 07/13/16 07/13/16 05:27 07:00 08:05 Temp 98.1 98.1 98.1 98.1 Pulse 67 67 Resp 18 18 B/P 143/67 143/67 Pulse Ox 96 96 O2 Delivery Room Air Room Air Room Air Intake and Output 07/12/16 07/12/16 07/13/16 15:00 23:00 07:00 Intake Total 0 ml Balance 0 ml JARVIS SANTO MD Jul 13, 2016 08:52
[2016-07-13] MEDS ORDERED: ESCITALOPRAM 5 MG TABLET. PO SCH (09:00)
[2016-07-13] MEDS: INSULIN DETEMIR 300 UNITS/3 ML INSULN.PEN. SQ SCH ×2 (09:00→21:31)
[2016-07-13] MEDS ORDERED: POTASSIUM CHLORIDE 20 MEQ TABLET.ER. PO ONE (09:30)
[2016-07-13] MEDS: ATORVASTATIN CALCIUM 20 MG TABLET PO SCH ×2 (09:45→21:25)
[2016-07-13] MEDS: ARIPIPRAZOLE 5 MG TABLET. PO SCH (09:45)
[2016-07-13] MEDS: LACTOBACILLUS ACIDOPH & BULGAR 1 TABLET. PO SCH ×2 (09:45→21:25)
[2016-07-13] MEDS: POTASSIUM CHLORIDE 20 MEQ/15 ML ORAL LIQUID. PO SCH (09:45)
[2016-07-13] MEDS: ESCITALOPRAM 10 MG TABLET. PO SCH (09:45)
[2016-07-13] MEDS: MULTIVITAMIN with MINERAL TABLET. PO SCH (09:46)
[2016-07-13] MEDS: FAMOTIDINE 20 MG TABLET. PO SCH (09:46)
[2016-07-13] MEDS: NYSTATIN TOPICAL POWDER 15GM BOTTLE. TP SCH ×2 (09:46→21:25)
[2016-07-13] MEDS: MAGNESIUM OXIDE 400 MG TABLET PO SCH (09:46)
[2016-07-13] MEDS: CALCIUM CARB/VIT D3 500/200 TABLET PO SCH (09:46)
[2016-07-13] MEDS: ASPIRIN 325 MG TABLET PO SCH (09:46)
[2016-07-13] MEDS: OMEGA-3 FATTY ACIDS/FISH OIL 1,000 MG CAPSULE. PO SCH (09:46)
[2016-07-13] MEDS: LISINOPRIL 20 MG TABLET PO SCH (09:46)
[2016-07-13] MEDS: ALPRAZOLAM 0.25 MG TABLET PO SCH (21:25)
[2016-07-14 03:44] VITALS: BP 108/53
[2016-07-14] MEDS: HEPARIN PF for SUB-Q USE 5,000 UNIT/0.5 ML VIAL. SQ SCH ×3 (05:48→20:54)
[2016-07-14 07:00] VITALS: BP 135/82
[2016-07-14] MEDS: INSULIN DETEMIR 300 UNITS/3 ML INSULN.PEN. SQ SCH ×2 (09:00→20:58)
[2016-07-14] MEDS: ASPIRIN 325 MG TABLET PO SCH (09:17)
[2016-07-14] MEDS: MULTIVITAMIN with MINERAL TABLET. PO SCH (09:17)
[2016-07-14] MEDS: ESCITALOPRAM 10 MG TABLET. PO SCH (09:17)
[2016-07-14] MEDS: LACTOBACILLUS ACIDOPH & BULGAR 1 TABLET. PO SCH ×2 (09:17→20:53)
[2016-07-14] MEDS: POTASSIUM CHLORIDE 20 MEQ/15 ML ORAL LIQUID. PO SCH (09:18)
[2016-07-14] MEDS: OMEGA-3 FATTY ACIDS/FISH OIL 1,000 MG CAPSULE. PO SCH (09:18)
[2016-07-14] MEDS: FAMOTIDINE 20 MG TABLET. PO SCH (09:18)
[2016-07-14] MEDS: ARIPIPRAZOLE 5 MG TABLET. PO SCH (09:18)
[2016-07-14] MEDS: CALCIUM CARB/VIT D3 500/200 TABLET PO SCH (09:19)
[2016-07-14] MEDS: NYSTATIN TOPICAL POWDER 15GM BOTTLE. TP SCH ×2 (09:19→20:56)
[2016-07-14] MEDS: MAGNESIUM OXIDE 400 MG TABLET PO SCH (09:19)
[2016-07-14] MEDS: LISINOPRIL 20 MG TABLET PO SCH (09:19)
[2016-07-14 11:00] VITALS: BP 121/68
[2016-07-14 15:00] VITALS: BP 132/93
--- NOTE | 2016-07-14 15:48 | PDOC ---
PROGRESS NOTES Chief Complaint Chief Complaint A/P Falls, Physical debility Dementia GARTH Leukocytosis better Hypertension, Hyperlipidemia. Diabetes mellitus ?Depression. Hx of hemochromatosis hx bradycardia Plan Per RN, pt is at baseline state, RN spoke with son Physical therapy SNU placement labs and medications reviewed SW consult IV hydration monitor WBC, improving , no obvious signs of infection, UA, CXR normal fall precautions History of Present Illness History of Present Illness no fever no chills sitting in chair d/w RN Vitals Vitals Vital Signs Date Time Temp Pulse Resp B/P Pulse Ox O2 Delivery O2 Flow Rate FiO2 07/14/16 11:00 97.4 60 18 121/68 100 Room Air 97.4 Physical Exam General: Alert, Oriented X3 (oriented to self and place), Cooperative, Other Heart: Normal S1, Normal S2 Lungs: Clear Extremities: No clubbing, No cyanosis, No edema, Normal pulses, No tenderness/ swelling Skin: No rashes, No breakdown, No significant lesion Labs LABS Laboratory Tests Test 07/13/16 17:08 07/13/16 21:22 07/14/16 08:05 07/14/16 09:15 Glucose (Fingerstick) 117mg/dL (70-99) 203mg/dL (70-99) 65mg/dL (70-99) 88mg/dL (70-99) Test 07/14/16 11:06 Glucose (Fingerstick) 117mg/dL (70-99) Assessment and Plan Assessmemt and Plan Problems Medical Problems: (1) Dehydration Status: Acute (2) Encephalopathy acute Status: Acute (3) Leukocytosis Status: Acute (4) Mental status change Status: Acute (5) Type 2 diabetes mellitus Status: Acute Problems: Comment Review of Relevant I have reviewed the following items michael (where applicable) has been applied. Labs Laboratory Tests Test 07/12/16 16:37 07/13/16 02:30 07/13/16 07:40 07/13/16 08:00 White Blood Count 21.0x10^3/uL (4.0-11.0) 11.7x10^3/uL (4.0-11.0) Red Blood Count 4.42x10^6/uL (3.50-5.40) 4.00x10^6/uL (3.50-5.40) Hemoglobin 14.3g/dL (12.0-15.5) 13.0g/dL (12.0-15.5) Hematocrit 42.4% (36.0-47.0) 39.2% (36.0-47.0) Mean Corpuscular Volume 96fL (79-100) 98fL (79-100) Mean Corpuscular Hemoglobin 32pg (25-35) 33pg (25-35) Mean Corpuscular Hemoglobin Concent 34g/dL (31-37) 33g/dL (31-37) Red Cell Distribution Width 14.4% (11.5-14.5) 14.8% (11.5-14.5) Platelet Count 179x10^3/uL (140-400) 136x10^3/uL (140-400) Neutrophils (%) (Auto) 93% (31-73) 78% (31-73) Lymphocytes (%) (Auto) 2% (24-48) 10% (24-48) Monocytes (%) (Auto) 5% (0-9) 10% (0-9) Eosinophils (%) (Auto) 0% (0-3) 1% (0-3) Basophils (%) (Auto) 1% (0-3) 0% (0-3) Neutrophils # (Auto) 19.5x10^3uL (1.8-7.7) 9.2x10^3uL (1.8-7.7) Lymphocytes # (Auto) 0.4x10^3/uL (1.0-4.8) 1.2x10^3/uL (1.0-4.8) Monocytes # (Auto) 1.0x10^3/uL (0.0-1.1) 1.2x10^3/uL (0.0-1.1) Eosinophils # (Auto) 0.0x10^3/uL (0.0-0.7) 0.1x10^3/uL (0.0-0.7) Basophils # (Auto) 0.1x10^3/uL (0.0-0.2) 0.0x10^3/uL (0.0-0.2) Segmented Neutrophils % 65% (35-66) Band Neutrophils % 25% (0-9) Lymphocytes % 5% (24-48) Monocytes % 5% (0-10) Platelet Estimate Adequate (ADEQUATE) Urine Collection Type Unknown Urine Color Malissa Urine Clarity Cloudy Urine pH 5.5 Urine Specific [place] >=1.030 Urine Protein Negativemg/dL (NEG-TRACE) Urine Glucose (UA) 500mg/dL (NEG) Urine Ketones (Stick) Negativemg/dL (NEG) Urine Blood Negative (NEG) Urine Nitrite Negative (NEG) Urine Bilirubin Small (NEG) Urine Urobilinogen Dipstick 0.2mg/dL (0.2 mg/dL) Urine Leukocyte Esterase Negative (NEG) Urine RBC 1-2/HPF (0-2) Urine WBC Occ/HPF (0-4) Urine Squamous Epithelial Cells Mod/LPF Urine Bacteria Few/HPF (0-FEW) Urine Hyaline Casts Moderate/HPF Urine Mucus Mod/LPF Sodium Level 137mmol/L (136-145) 143mmol/L (136-145) Potassium Level 4.0mmol/L (3.5-5.1) 3.1mmol/L (3.5-5.1) Chloride Level 100mmol/L (98-107) 106mmol/L (98-107) Carbon Dioxide Level 26mmol/L (21-32) 26mmol/L (21-32) Anion Gap 11 (6-14) 11 (6-14) Blood Urea Nitrogen 26mg/dL (7-20) 25mg/dL (7-20) Creatinine 1.5mg/dL (0.6-1.0) 1.2mg/dL (0.6-1.0) Estimated GFR (Cockcroft-Gault) 33.8 43.7 BUN/Creatinine Ratio 17 (6-20) Glucose Level 280mg/dL (70-99) 90mg/dL (70-99) Lactic Acid Level 1.9mmol/L (0.4-2.0) Calcium Level 8.8mg/dL (8.5-10.1) 8.4mg/dL (8.5-10.1) Magnesium Level 1.7mg/dL (1.8-2.4) Total Bilirubin 1.0mg/dL (0.2-1.0) Aspartate Amino Transf (AST/SGOT) 16U/L (15-37) Alanine Aminotransferase (ALT/SGPT) 30U/L (14-59) Alkaline Phosphatase 73U/L (46-116) Total Protein 6.3g/dL (6.4-8.2) Albumin 3.2g/dL (3.4-5.0) Albumin/Globulin Ratio 1.0 (1.0-1.7) Glucose (Fingerstick) 92mg/dL (70-99) Nasal Screen MRSA (PCR) Negative (Negative) Test 07/13/16 11:53 07/13/16 17:08 07/13/16 21:22 07/14/16 08:05 Glucose (Fingerstick) 130mg/dL (70-99) 117mg/dL (70-99) 203mg/dL (70-99) 65mg/dL (70-99) Test 07/14/16 09:15 07/14/16 11:06 Glucose (Fingerstick) 88mg/dL (70-99) 117mg/dL (70-99) Laboratory Tests Test 07/13/16 17:08 07/13/16 21:22 07/14/16 08:05 07/14/16 09:15 Glucose (Fingerstick) 117mg/dL (70-99) 203mg/dL (70-99) 65mg/dL (70-99) 88mg/dL (70-99) Test 07/14/16 11:06 Glucose (Fingerstick) 117mg/dL (70-99) Medications Current Medications Ondansetron HCl 4 mg 4 mg PRN Q8HRS PRN IV NAUSEA/VOMITING; Start 07/12/16 at 18:00; Stop 07/12/16 at 18:39; Status DC Sodium Chloride (Iv Sodium Chloride 0.9% 1000ml Bag) 1,000 ml @ 125 mls/hr Q8H IV Last administered on 07/13/16t 09:54; Start 07/12/16 at 17:58; Stop at 17:57; Status DC Acetaminophen (Tylenol) 650 mg PRN Q4HRS PRN PO FEVER; Start 07/12/16 at 18:00 ; Stop 07/12/16 at 19:03; Status DC Ondansetron HCl (Zofran) 4 mg PRN Q6HRS PRN IV NAUSEA/VOMITING; Start 07/12/16 at 18:36 Heparin Sodium (Porcine) 5,000 unit Q8HRS SQ Last administered on 07/14/16 05: 48; Start 07/12/16 at 21:00 Acetaminophen (Tylenol) 650 mg PRN Q6HRS PO ; Start 07/12/16 at 18:45 Alprazolam (Xanax) 0.5 mg HS PO Last administered on 07/13/16 21:25; Start at 21:00 Aspirin (Samira Aspirin) 325 mg DAILY PO Last administered on 07/14/16 09:17; Start 07/13/16 at 09:00 Atorvastatin Calcium (Lipitor) 20 mg QHS PO Last administered on 07/13/16 21: 25; Start 07/13/16 at 09:00 Calcium/Vitamin D (Oscal D 500mg/ 200uts) 1 tab DAILY PO Last administered on 09:19; Start 07/13/16 at 09:00 Escitalopram Oxalate (Lexapro) 15 mg DAILY PO ; Start 07/13/16 at 09:00; Stop at 09:00; Status DC Insulin Detemir (Levemir) 10 units BID SQ Last administered on 07/13/16 21:31 ; Start 07/12/16 at 21:00 Lisinopril (Prinivil) 20 mg DAILY PO Last administered on 07/14/16 09:19; Start 07/13/16 at 09:00 Loperamide HCl (Imodium) 2 mg PRN TID PRN PO DIARRHEA; Start 07/12/16 at 18:45 Magnesium Oxide (Magnesium Oxide) 400 mg DAILY PO Last administered on 09:19; Start 07/13/16 at 09:00 Nystatin (Nystop) 1 shruthi BID TP Last administered on 07/14/16 09:19; Start at 21:00 Fish Oil (Fish Oil) 1,000 mg DAILY PO Last administered on 07/14/16 09:18; Start 07/13/16 at 09:00 Potassium Chloride (KCl Oral Soln) 20 meq DAILY PO Last administered on 09:18; Start 07/13/16 at 09:00 Simethicone (Gas-X) 80 mg PRN QID PRN PO GAS; Start 07/12/16 at 18:45 Aripiprazole (Abilify) 7.5 mg DAILY PO Last administered on 07/14/16 09:18; Start 07/13/16 at 09:00 Lactobacillus Acidophilus (Bacid, Azul-Bid) 1 tab BID PO Last administered on 09:17; Start 07/12/16 at 21:00 Multivitamins/ Calcium (Thera M Plus) 1 tab DAILY PO Last administered on 09:17; Start 07/13/16 at 09:00 Famotidine (Pepcid) 20 mg BID PO Last administered on 07/13/16 09:46; Start at 21:00; Stop 07/13/16 at 13:13; Status DC Escitalopram Oxalate (Lexapro) 15 mg DAILY PO Last administered on 07/14/16 09 :17; Start 07/13/16 at 09:00 Potassium Chloride (Klor-Con) 40 meq 1X ONCE PO Last administered on 12:51; Start 07/13/16 at 09:30; Stop 07/13/16 at 09:31; Status DC Famotidine (Pepcid) 20 mg DAILY PO Last administered on 07/14/16 09:18; Start 07/14/16 at 09:00 Active Scripts Active Nystop (Nystatin) 60 Gm Powder 1 Shruthi TP BID Reported Zantac (Ranitidine Hcl) 150 Mg Tablet 1 Tab PO BID Tylenol (Acetaminophen) 325 Mg Tablet 650 Mg PO PRN Q6HRS Probiotic (Lactobacillus Combo No.11) 1 Each Cap.sprink 1 Each PO BID Potassium Chloride Oral Liquid (Potassium Chloride) 20 Meq/15 Ml Liquid 20 Meq PO DAILY Oyster Shell Calcium + D Tab (Calcium Carbonate/Vitamin D3) 1 Each Tablet 1 Each PO Nephro-Jerilyn Rx Tablet (Vit B Cmplx 3/Fa/Vit C/Biotin) 1 Each Tablet 1 Tab PO Multivitamins (Multivitamin) 1 Each Tablet 1 Tab PO DAILY Magnesium Oxide 400 Mg Tablet 1 Tab PO DAILY Levemir Flextouch (Insulin Detemir) 100 Unit/1 Ml Insuln.pen 10 Unit SQ BID Imodium A-D (Loperamide HCl) 2 Mg Capsule 2 Mg PO Simethicone 80 Mg Tab.chew 80 Mg PO PRN QID Fish Oil 1,000 Mg Capsule ([place]-3 Fatty Acids/Fish Oil) 1 Each Capsule 1 Each PO Escitalopram Oxalate 10 Mg Tablet 15 Mg PO DAILY Aspirin 325 Mg Tablet 1 Tab PO DAILY Alprazolam 0.25 Mg Tablet 0.5 Mg PO HS Abilify (Aripiprazole) 15 Mg Tablet 7.5 Mg PO DAILY Lipitor (Atorvastatin Calcium) 20 Mg Tablet 20 Mg PO DAILY Lisinopril 20 Mg Tablet 20 Mg PO DAILY Vitals/I & O Vital Sign - Last 24 Hours 07/13/16 07/13/16 07/13/16 07/14/16 19:40 20:00 23:19 03:44 Temp 97.8 98.3 97.4 97.8 98.3 97.4 Pulse 69 55 53 Resp 18 20 B/P 134/60 112/65 108/53 Pulse Ox 97 95 95 O2 Delivery Room Air Room Air Room Air Room Air 07/14/16 07/14/16 07/14/16 07/14/16 07:00 08:00 09:19 11:00 Temp 98.4 97.4 98.4 97.4 Pulse 68 68 60 Resp 18 B/P 135/82 135/82 121/68 Pulse Ox 96 100 O2 Delivery Room Air Room Air Room Air Intake and Output 07/13/16 07/13/16 07/14/16 15:00 23:00 07:00 Intake Total 2091 ml 360 ml Balance 2091 ml 360 ml JARVIS SANTO MD Jul 14, 2016 15:48
[2016-07-14 19:46] VITALS: BP 120/65
[2016-07-14] MEDS: ATORVASTATIN CALCIUM 20 MG TABLET PO SCH (20:53)
[2016-07-14] MEDS: ALPRAZOLAM 0.25 MG TABLET PO SCH (20:53)
[2016-07-14 23:15] VITALS: BP 130/68
[2016-07-15 03:20] VITALS: BP 132/72
[2016-07-15] MEDS: HEPARIN PF for SUB-Q USE 5,000 UNIT/0.5 ML VIAL. SQ SCH (04:56)
[2016-07-15 07:00] VITALS: BP 147/65
[2016-07-15] MEDS: ESCITALOPRAM 10 MG TABLET. PO SCH (09:00)
[2016-07-15 09:17] VITALS: BP 147/65
[2016-07-15] MEDS: ARIPIPRAZOLE 5 MG TABLET. PO SCH (09:30)
[2016-07-15] MEDS: FAMOTIDINE 20 MG TABLET. PO SCH (09:30)
[2016-07-15] MEDS: LISINOPRIL 20 MG TABLET PO SCH (09:31)
[2016-07-15] MEDS: ASPIRIN 325 MG TABLET PO SCH (09:31)
[2016-07-15] MEDS: MULTIVITAMIN with MINERAL TABLET. PO SCH (09:31)
[2016-07-15] MEDS: LACTOBACILLUS ACIDOPH & BULGAR 1 TABLET. PO SCH (09:31)
[2016-07-15] MEDS: MAGNESIUM OXIDE 400 MG TABLET PO SCH (09:31)
[2016-07-15] MEDS: OMEGA-3 FATTY ACIDS/FISH OIL 1,000 MG CAPSULE. PO SCH (09:32)
[2016-07-15] MEDS: CALCIUM CARB/VIT D3 500/200 TABLET PO SCH (09:32)
[2016-07-15] MEDS: ALPRAZOLAM 0.25 MG TABLET PO SCH (09:32)
[2016-07-15] MEDS: NYSTATIN TOPICAL POWDER 15GM BOTTLE. TP SCH (09:34)
[2016-07-15] MEDS: POTASSIUM CHLORIDE 20 MEQ/15 ML ORAL LIQUID. PO SCH (09:34)
[2016-07-15] MEDS: INSULIN DETEMIR 300 UNITS/3 ML INSULN.PEN. SQ SCH (09:46)
[2016-07-15 11:19] VITALS: BP 150/69
--- NOTE | 2016-07-15 13:19 | PDOC3 ---
Discharge Summary [facility] Date of Admission: Jul 12, 2016 Discharge Date: Jul 15, 2016 Admitting Diagnosis Falls, Physical debility Dementia, severe GARTH, vasomotor Leukocytosis better Hypertension, Hyperlipidemia. Diabetes mellitus ?Depression. Hx of hemochromatosis hx asymptomatic sinus bradycardia Problems: Final Diagnosis Problems Medical Problems: (1) Dehydration Status: Acute (2) Encephalopathy acute Status: Acute (3) Leukocytosis Status: Acute (4) Mental status change Status: Acute (5) Type 2 diabetes mellitus Status: Acute Brief Hospital Course Ms. Luciano is a 76 old F. very demented, comes here every month for AMS, with likely dehydration, sometimes UTI, and flucutating of her dementia. Pt was here this time for dehydration, GARTH, better with IVF. pT REALLY needs SNF care, but always dc back to assisted living facility where they said they have "everything" dc time 35min . General: Alert, Oriented X1 (oriented to self and place), Cooperative, Other Heart: Normal S1, Normal S2 Lungs: Clear Extremities: No clubbing, No cyanosis, No edema, Normal pulses, No tenderness/ swelling Skin: No rashes, No breakdown, No significant lesion Patient History: Patient reports no known family medical history. Problems: Disposition home CONDITION AT DISCHARGE: Stable Diet regular Scheduled Acetaminophen (Tylenol) 650 MG PO PRN Q6HRS (Reported) Alprazolam (Alprazolam) 0.5 MG PO HS (Reported) Aripiprazole (Abilify) 7.5 MG PO DAILY (Reported) Aspirin (Aspirin) 1 TAB PO DAILY (Reported) Atorvastatin Calcium (Lipitor) 20 MG PO DAILY (Reported) Escitalopram Oxalate (Escitalopram Oxalate) 15 MG PO DAILY (Reported) Insulin Detemir (Levemir Flextouch) 10 UNIT SQ BID (Reported) Lactobacillus Combo No.11 (Probiotic) 1 EACH PO BID (Reported) Lisinopril (Lisinopril) 20 MG PO DAILY (Reported) Magnesium Oxide (Magnesium Oxide) 1 TAB PO DAILY (Reported) Multivitamin (Multivitamins) 1 TAB PO DAILY (Reported) Nystatin (Nystop) 1 GUSTAVO TP BID Potassium Chloride (Potassium Chloride Oral Liquid) 20 MEQ PO DAILY (Reported) Ranitidine Hcl (Zantac) 1 TAB PO BID (Reported) Simethicone (Simethicone) 80 MG PO PRN QID (Reported) Miscellaneous Medications Calcium Carbonate/Vitamin D3 (Oyster Shell Calcium + D Tab) 1 EACH PO (Reported ) Loperamide HCl (Imodium A-D) 2 MG PO (Reported) [place]-3 Fatty Acids/Fish Oil (Fish Oil 1,000 Mg Capsule) 1 EACH PO (Reported) Vit B Cmplx 3/Fa/Vit C/Biotin (Nephro-Jerilyn Rx Tablet) 1 TAB PO (Reported) Follow Up pcp in 2 weeks MARLENY BAY MD Jul 15, 2016 13:19
== END 2016-07-15 14:26 | disposition home or self-care (01) | DRG 682 ==
LOC: ER 16:22 → ED HOLD 17:50 → 5 NORTH 20:22
PROVIDERS: ADMIT Internal Medicine; ATTEND Internal Medicine
DX: N17.0 Acute kidney failure with tubular necrosis (principal); E43 Unspecified severe protein-calorie malnutrition; R65.10 Systemic inflammatory response syndrome (SIRS) of non-infectious origin without acute organ dysfunction; N39.0 Urinary tract infection, site not specified; E11.649 Type 2 diabetes mellitus with hypoglycemia without coma; E78.00 Pure hypercholesterolemia, unspecified; E78.5 Hyperlipidemia, unspecified; E83.42 Hypomagnesemia; F03.90 Unspecified dementia, unspecified severity, without behavioral disturbance, psychotic disturbance, mood disturbance, and anxiety; F32.9 Major depressive disorder, single episode, unspecified; H40.9 Unspecified glaucoma; I10 Essential (primary) hypertension; I25.10 Atherosclerotic heart disease of native coronary artery without angina pectoris; K21.9 Gastro-esophageal reflux disease without esophagitis; R13.10 Dysphagia, unspecified; F41.9 Anxiety disorder, unspecified; D72.829 Elevated white blood cell count, unspecified; M19.90 Unspecified osteoarthritis, unspecified site; Z88.8 Allergy status to other drugs, medicaments and biological substances; Z68.32 Body mass index [BMI] 32.0-32.9, adult; Z83.3 Family history of diabetes mellitus; Z86.73 Personal history of transient ischemic attack (TIA), and cerebral infarction without residual deficits
CPT/HCPCS: 36415; 51701; 70450; 71010; 80048; 80053; 81001; 82947; 83605; 83735; 85007; 85027; 87641; 93005; J1815; J7030; 97110; 97116; 97530; 99285-25